=== PATIENT | female | born 1955 | race Caucasian/White ===

== ENCOUNTER → 2021-08-21 11:01 | Outpatient (CLI) | payer BC, SELFPAY ==
--- NOTE | ~2021-08-21 | DEXA_ITS ---
Bone Density Report Name: FARHANA RIVAS Age: 65 Sex: Female Ethnicity: White Date of : 1955 Indication: osteopenia; postmenopausal Referring Provider: VERONICA MUÑOZ Study: Bone densitometry was performed. Exam Date: August 21, 2021 Accession number: [id number] Bone Density: Region BMD T-score Z-score Classification AP Spine (L1-L4) 0.942 -1.0 0.8 Normal Femoral Neck (Left) 0.736 -1.0 0.5 Normal Total Hip (Left) 0.978 0.3 1.5 Normal Femoral Neck (Right) 0.755 -0.8 0.6 Normal Total Hip (Right) 0.906 -0.3 0.9 Normal Total Hip Mean 0.942 0.0 1.2 Normal World Health Organization criteria for BMD impression classify patients as: Normal (T-score at or above -1.0), Osteopenia (T-score between -1.0 and -2.5), or Osteoporosis (T-score at or below -2.5). 10-year Fracture Risk: FRAX not reported because: All T-scores for Spine Total, Hip Total, Femoral Neck at or above -1.0 Previous Exams: Region Exam Age BMD T-score BMD Change BMD Change Date g/cm2 vs Baseline vs Previous AP Spine(L1-L4) 08/21/2021 65 0.942 -1.0 -0.083* 0.015 01/26/2018 62 0.927 -1.1 -0.097* -0.097* 05/22/2014 58 1.025 -0.2 Total Hip(Left) 08/21/2021 65 0.978 0.3 0.033* 0.052* 01/26/2018 62 0.926 -0.1 -0.019 -0.019 05/22/2014 58 0.944 0.0 Total Hip(Right) 08/21/2021 65 0.906 -0.3 -0.041* -0.021 01/26/2018 62 0.926 -0.1 -0.021 -0.021 05/22/2014 58 0.947 0.0 *Denotes significance at 95% confidence level, LSC for AP Spine = 0.022 g/cm2, LSC for Total Hip = 0.027 g/cm2 Clinical Information Provided by Patient: Smokes Has used the following medications: Vitamin D Patient maximum height was 67 Menopause Age: 57 No regular weight bearing exercise Does not regularly consume dairy products Drinks caffeinated beverages Onset of menses at age 19 Number of children 1 Impression: The patient has normal bone mass. The patient has risk factors, including: smoking. No significant bone loss was observed. Discussion: BONE DENSITY IS ABOVE THE MINIMUM DESIRABLE LEVEL AT ALL SKELETAL SITES TESTED. This patient?s bone mineral density is above the minimum desirable level (T-score -1.0 or better) at all sites measured. The patient should follow a healthful lifestyle (good nutrition with adequate calcium and vitamin D, and appropriate weight-be
--- NOTE | ~2021-08-21 | MM_ITS ---
EXAMINATION: MM screening tammy BI w matt HISTORY: Screening mammogram TECHNIQUE: Craniocaudal and mediolateral oblique 3-D tomosynthesis images were obtained and synthetic 2-D images were generated. CAD analysis was submitted and interpreted. COMPARISON: August 10, 2018, January 26, 2018, July 02, 2013 bilateral screening mammogram examinat ions BREAST PARENCHYMAL COMPOSITION: The breasts are almost entirely fatty. FINDINGS: Stable benign grouped punctate microcalcifications in the skin at posterior lower inner rig ht breast, not changed since prior examination. There is no evidence of suspicious mass, calcificatio n, or architectural distortion to suggest malignancy in either breast. There has been no suspicious i nterval change. IMPRESSION: 1. No mammographic evidence of malignancy. 2. Recommend routine screening mammography in one year. BI-RADS Category 1: Negative Reviewed, dictated and finalized at location A. [facility]
== END ==
PROVIDERS: PCP Family Medicine; Visit Provider Obstetrics & Gynecology
DX: Z12.31 Encounter for screening mammogram for malignant neoplasm of breast (principal); Z78.0 Asymptomatic menopausal state
CPT/HCPCS: 77063; 77067; 77080

== ENCOUNTER 2022-07-18 10:40 | Outpatient (CLI) | payer MEDICARE, OTHER, SELFPAY ==
[2022-07-18 14:08] LABS: Kit Draw Collected
== END 2022-07-18 10:41 | disposition home or self-care (01) ==
LOC: ANHGOSHLAB 10:46
PROVIDERS: PCP Family Medicine; Visit Provider Nurse Practitioner
DX: E11.9 Type 2 diabetes mellitus without complications (principal)
CPT/HCPCS: 36415

== ENCOUNTER 2023-03-06 11:58 | Emergency (ER) | payer MEDICARE, SELFPAY ==
--- NOTE | ~2023-03-06 | XR_ITS ---
EXAMINATION: XR chest 2V DATE: 03/06/2023 13:24 INDICATION: Cough TECHNIQUE: Frontal and lateral views of the chest are obtained COMPARISON: None available FINDINGS: The lungs are free of acute opacities. No pleural effusion or pneumothorax. The cardiomedia stinal silhouette is normal. There is moderate thoracic spondylosis. IMPRESSION: 1. No acute cardiopulmonary abnormality. Reviewed, dictated and finalized at location A.
[2023-03-06 12:39] VITALS: BP 127/68; PULSE 65; RESP 16; TEMP 36.3; O2SAT 96
--- NOTE | 2023-03-06 13:11 | ED.URI ---
HPI - URI/Sore Throat General Chief Complaint: Upper Respiratory Infection Stated Complaint: COUGH Time Seen by Provider: 03/06/23 13:11 Source: patient Mode of arrival: ambulatory Limitations: no limitations History of Present Illness HPI Narrative: 67-year-old female presents for complaint of persistent cough for over 2 and half weeks. States cough is nonproductive. Endorses occasional wheezing and fatigue due to inability to sleep from the cough. Patient completed a course of steroids and azithromycin 1 week ago prescribed by her PCP. She endorses no improvement in symptoms. Denies shortness of breath, nausea, vomiting, lethargy, fevers or chills. Related Data Home Medications Medication Instructions Recorded Confirmed aspirin 81 mg tablet,delayed 81 mg PO DAILY 09/16/19 03/06/23 release (Adult Aspirin Regimen) betamethasone dipropionate 0.05 % 1 applic topical BID 11/10/20 03/06/23 topical cream Saccharomyces boulardii 250 mg 250 mg PO BID 09/08/21 03/06/23 capsule (Daily Probiotic (S. boulardii)) cholecalciferol (vitamin D3) 125 125 mcg PO DAILY 09/08/21 03/06/23 mcg (5,000 unit) capsule multivitamin (Daily Multi-Vitamin 1 tablet PO DAILY 09/08/21 03/06/23 tablet) Allergies Allergy/AdvReac Type Severity Reaction Status Date / Time No Known Allergies Allergy Unknown Verified 03/06/23 12:33 Review of Systems Review of Systems: CONSTITUTIONAL: Denies body aches, fever, chills, or sweats. EYES: Denies visual changes, redness, or discharge. ENT: Denies rhinorrhea, congestion, sore throat, or otalgia. CARDIOVASCULAR: Denies chest pain, palpitations, or edema. RESPIRATORY: Reports cough, denies sob GASTROINTESTINAL: Denies abdominal pain, nausea, vomiting, or diarrhea. GENITOURINARY: Denies dysuria or hematuria. SKIN: Denies rash, itching, or wounds. MUSCULOSKELETAL: Denies back pain, joint pain, or myalgia. NEUROLOGIC: Denies headache, numbness, tingling, or weakness. All systems reviewed & are unremarkable except as noted in HPI and below PMFSH Past Medical History Medical History Anxiety disorder, unspecified Depressive disorder, not elsewhere classified Diabetes mellitus Granuloma annulare History of TIA (transient ischemic attack) 2016 Panic disorder with agoraphobia and mild panic attacks Psoriasis Urge incontinence Vitamin B12 deficiency Surgical History Surgical History H/O bariatric surgery (~2002) gastric bypass H/O: (~1982) Family History Family History Mother Family history of transient ischemic attacks Cerebrovascular accident Family history of dementia Father Cerebrovascular accident Family history of heart disease in male family member before age 55 Other Family history of lung disease Family history of malignant neoplasm of breast in first degree relative Social History Social History Years smoked: 30 Smoking status: Current every day smoker Tobacco type: cigarettes Alcohol intake: never Substance use: never Substance use type: does not use Lack of Transportation: No Lack of Food: Never True Current Housing: I Have Housing Concerned About Future Housing: No Difficulty Paying Gas/Electric Bills: No Difficulty Paying for Meds: No Currently Unemployed: No Education: Master's Degree or Higher Living arrangements: alone Occupation/Education: retired 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
== END 2023-03-06 14:05 | disposition home or self-care (01) ==
PROVIDERS: Emergency Provider Nurse Practitioner Family; PCP Nurse Practitioner Family
DX: J40 Bronchitis, not specified as acute or chronic (principal); E11.9 Type 2 diabetes mellitus without complications; Z86.73 Personal history of transient ischemic attack (TIA), and cerebral infarction without residual deficits; L40.9 Psoriasis, unspecified; Z79.82 Long term (current) use of aspirin; F41.9 Anxiety disorder, unspecified; F32.A Depression, unspecified; F40.01 Agoraphobia with panic disorder
CPT/HCPCS: 71046; 99213; G0463

== ENCOUNTER 2023-07-28 14:42 | Emergency (ER) | payer MEDICARE, SELFPAY ==
[2023-07-28 14:53] VITALS: BP 126/75; PULSE 85; RESP 16; TEMP 37.2; O2SAT 100
--- NOTE | 2023-07-28 15:18 | ED.SKABFB ---
HPI - Skin/Abscess/Foreign Bdy General Chief complaint: Skin/Abscess/Foreign Body Stated complaint: abscess Time Seen by Provider: 07/28/23 15:06 Source: patient, RN notes reviewed and old records reviewed Mode of arrival: ambulatory Limitations: no limitations History of Present Illness HPI narrative: Patient presents today complaining of an abscess to her right labia. She was seen by her PCP on 07/11/2023 for same complaint and her abscess was lanced and drained at that time and she was started on a Bactrim. She was subsequently seen on 07/18/2023 for follow-up and her symptoms were improved. Since that time, her symptoms have significantly worsened even though she is still on Bactrim. Related Data Home Medications Medication Instructions Recorded Confirmed aspirin 81 mg tablet,delayed 81 mg PO DAILY 09/16/19 07/28/23 release (Adult Aspirin Regimen) betamethasone dipropionate 0.05 % 1 applic topical BID 11/10/20 07/28/23 topical cream Saccharomyces boulardii 250 mg 250 mg PO BID 09/08/21 07/28/23 capsule (Daily Probiotic (S. boulardii)) cholecalciferol (vitamin D3) 125 125 mcg PO DAILY 09/08/21 07/28/23 mcg (5,000 unit) capsule multivitamin (Daily Multi-Vitamin 1 tablet PO DAILY 09/08/21 07/28/23 tablet) Allergies Allergy/AdvReac Type Severity Reaction Status Date / Time No Known Allergies Allergy Unknown Verified 07/28/23 14:56 Review of Systems Review of Systems: CONSTITUTIONAL: Denies body aches, fever, chills, or sweats. EYES: Denies visual changes, redness, or discharge. ENT: Denies rhinorrhea, congestion, sore throat, or otalgia. CARDIOVASCULAR: Denies chest pain, palpitations, or edema. RESPIRATORY: Denies cough or dyspnea. GASTROINTESTINAL: Denies abdominal pain, nausea, vomiting, or diarrhea. GENITOURINARY: Denies dysuria or hematuria. SKIN: + right labial abscess MUSCULOSKELETAL: Denies back pain, joint pain, or myalgia. NEUROLOGIC: Denies headache, numbness, tingling, or weakness. PSYCH: Denies depression or anxiety. [facility] Past Medical History Medical History Anxiety disorder, unspecified Depressive disorder, not elsewhere classified Diabetes mellitus Granuloma annulare History of TIA (transient ischemic attack) 2016 Panic disorder with agoraphobia and mild panic attacks Psoriasis Urge incontinence Vitamin B12 deficiency Surgical History Surgical History H/O bariatric surgery (~2002) gastric bypass H/O: (~1982) Family History Family History Mother Family history of transient ischemic attacks Cerebrovascular accident Family history of dementia Father Cerebrovascular accident Family history of heart disease in male family member before age 55 Other Family history of lung disease Family history of malignant neoplasm of breast in first degree relative Social History Social History Years smoked: 30 Smoking status: Current every day smoker Tobacco type: cigarettes Smoking end date: 03/30/23 Alcohol intake: never Substance use: never Substance use type: does not use Lack of Transportation: No Lack of Food: Never True Current Housing: I Have Housing Concerned About Future Housing: No Difficulty Paying Gas/Electric Bills: No Difficulty Paying for Meds: No Currently Unemployed: No Education: Master's Degree or Higher Living arrangements: alone Occupation/Education: retired Additional occupation/education 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
[2023-07-28] MEDS: LIDOCAINE HCL 1% LOCAL INJ 2 ML AMPUL 8 ML INFILTRATE (15:23)
== END 2023-07-28 15:51 | disposition home or self-care (01) ==
PROVIDERS: Emergency Provider Nurse Practitioner; PCP Nurse Practitioner Family
DX: N76.4 Abscess of vulva (principal); Z87.891 Personal history of nicotine dependence; E11.9 Type 2 diabetes mellitus without complications; Z86.73 Personal history of transient ischemic attack (TIA), and cerebral infarction without residual deficits; Z79.82 Long term (current) use of aspirin; F41.9 Anxiety disorder, unspecified; F32.A Depression, unspecified
CPT/HCPCS: 56405; 87070; 87075; 87205; 99213; G0463

== ENCOUNTER 2023-10-05 14:13 | Outpatient (CLI) | payer MEDICARE, SELFPAY ==
--- NOTE | ~2023-10-05 | DEXA_ITS ---
Bone Density Report Name: FARHANA RIVAS Age: 67 Sex: Female Ethnicity: White Date of : 1955 Indication: postmenopausal; screening for osteoporosis; prior fracture; Referring Provider: HIMANSHU LOMBARDI Study: Bone densitometry was performed. Exam Date: October 05, 2023 Accession number: [id number] Bone Density: Region BMD T-score Z-score Classification AP Spine (L1-L4) 0.924 -1.1 0.8 Osteopenia Femoral Neck (Left) 0.666 -1.7 0.0 Osteopenia Total Hip (Left) 0.957 0.1 1.4 Normal Femoral Neck (Right) 0.670 -1.6 0.0 Osteopenia Total Hip (Right) 0.904 -0.3 1.0 Normal Total Hip Mean 0.931 -0.1 1.2 Normal World Health Organization criteria for BMD impression classify patients as: Normal (T-score at or above -1.0), Osteopenia (T-score between -1.0 and -2.5), or Osteoporosis (T-score at or below -2.5). 10-year Fracture Risk(1): Major Osteoporotic Fracture 14% Hip Fracture 1.5% Reported Risk Factors: [place] (), Neck BMD=0.670, BMI=42.9, previous fracture Input outside FRAX(R) limits. Adjusted to:Kkvubg=741 kg (1) FRAX(R) Version 3.08. Fracture probability calculated for an untreated patient. Fracture probability may be lower if the patient has received treatment. Previous Exams: Region Exam Age BMD T-score BMD Change BMD Change Date g/cm2 vs Baseline vs Previous AP Spine(L1-L4) 10/05/2023 67 0.924 -1.1 -0.101 -0.019 08/21/2021 65 0.942 -1.0 -0.083* 0.015 01/26/2018 62 0.927 -1.1 -0.097* -0.097* 05/22/2014 58 1.025 -0.2 Total Hip(Left) 10/05/2023 67 0.957 0.1 0.013 -0.021 08/21/2021 65 0.978 0.3 0.033* 0.052* 01/26/2018 62 0.926 -0.1 -0.019 -0.019 05/22/2014 58 0.944 0.0 Total Hip(Right) 10/05/2023 67 0.904 -0.3 -0.043* -0.002 08/21/2021 65 0.906 -0.3 -0.041* -0.021 01/26/2018 62 0.926 -0.1 -0.021 -0.021 05/22/2014 58 0.947 0.0 *Denotes significance at 95% confidence level, LSC for AP Spine = 0.022 g/cm2, LSC for Total Hip = 0.027 g/cm2 Clinical Information Provided by Patient: Has had a low trauma fracture Has used the following medications: Vitamin D Patient maximum height was 67.2 Menopause Age: 57 No regular weight bearing exercise Does not regularly consume dairy products Drinks caffeinated beverages Onset of menses at age 19 Number of children 1 Missed period f
== END 2023-10-05 14:14 ==
LOC: MICIMG 14:15
PROVIDERS: PCP Nurse Practitioner Family; Visit Provider Nurse Practitioner Family
DX: Z78.0 Asymptomatic menopausal state (principal); M85.88 Other specified disorders of bone density and structure, other site; M85.852 Other specified disorders of bone density and structure, left thigh; M85.851 Other specified disorders of bone density and structure, right thigh
CPT/HCPCS: 77080

== ENCOUNTER 2023-10-31 10:47 | Outpatient (CLI) | payer MEDICARE, SELFPAY ==
[2023-10-31 19:37] LABS: Alanine Aminotransferase 30 U/L (6-35); Albumin Level 4.1 g/dL (3.5-5.1); Alkaline Phosphatase 85 U/L (38-126); Anion Gap 8 mmol/L (4-12); Aspartate Amino Transferase 35 U/L (14-36); Bilirubin,Total 0.5 mg/dL (0.2-1.3); Blood Urea Nitrogen 14 mg/dL (7-17); Calcium 9.1 mg/dL (8.4-10.2); Carbon Dioxide 25 mmol/L (22-30); Chloride 106 mmol/L (98-107); Cholesterol 182 mg/dL (0-200); Estimated Glomerular Filt Rate > 60; Glucose 106 mg/dL (65-110); HDL Direct 40 mg/dL; Potassium 4.4 mmol/L (3.4-5.0); Sodium 139 mmol/L (137-145); Triglycerides 176 mg/dL (<150)
[2023-10-31 19:49] LABS: LDL Cholesterol Direct 118 mg/dL
[2023-11-03 15:08] LABS: Vitamin D 1,25 (OH)2 Total 67 pg/mL (18-72); Vitamin D2 1,25 (OH)2 <8 pg/mL; Vitamin D3 1,25 (OH)2 67 pg/mL
== END 2023-10-31 10:48 | disposition home or self-care (01) ==
LOC: ANHGOSHLAB 10:49
PROVIDERS: Visit Provider Nurse Practitioner Family
DX: E11.9 Type 2 diabetes mellitus without complications (principal); E78.1 Pure hyperglyceridemia; E55.9 Vitamin D deficiency, unspecified; E53.8 Deficiency of other specified B group vitamins
CPT/HCPCS: 36415; 80053; 80061; 82607; 82652; 83036

== ENCOUNTER 2023-10-31 15:42 | Outpatient (CLI) | payer MEDICARE, SELFPAY ==
--- NOTE | ~2023-10-31 | MM_ITS ---
EXAMINATION: MM screening tammy BI w matt HISTORY: Screening mammogram TECHNIQUE: Craniocaudal and mediolateral oblique 3-D tomosynthesis images were obtained and synthetic 2-D images were generated. CAD analysis was submitted and interpreted. COMPARISON: August 21, 2019 bilateral screening mammogram BREAST PARENCHYMAL COMPOSITION: The breasts are almost entirely fatty. FINDINGS: There is no evidence of suspicious mass, calcification, or architectural distortion to sugg est malignancy in either breast. There has been no suspicious interval change. IMPRESSION: 1. No mammographic evidence of malignancy. 2. Recommend routine screening mammography in one year. BI-RADS Category 1: Negative Reviewed, dictated and finalized at location A.
== END 2023-10-31 15:43 ==
LOC: MICIMG 15:43
PROVIDERS: PCP Nurse Practitioner; Visit Provider Nurse Practitioner
DX: Z12.31 Encounter for screening mammogram for malignant neoplasm of breast (principal)
CPT/HCPCS: 77063; 77067

== ENCOUNTER 2024-05-21 10:29 | Outpatient (CLI) | payer MEDICARE, SELFPAY ==
[2024-05-21 13:31] LABS: Alanine Aminotransferase 21 U/L (6-35); Alkaline Phosphatase 90 U/L (38-126); Anion Gap 5 mmol/L (4-12); Aspartate Amino Transferase 34 U/L (14-36); Bilirubin,Total 0.4 mg/dL (0.2-1.3); Blood Urea Nitrogen 17 mg/dL (7-17); Carbon Dioxide 27 mmol/L (22-30); Chloride 106 mmol/L (98-107); Cholesterol 175 mg/dL (0-200); Estimated Glomerular Filt Rate > 60; Glucose 93 mg/dL (65-110); HDL Direct 37 mg/dL; Potassium 4.3 mmol/L (3.4-5.0); Sodium 138 mmol/L (137-145); Triglycerides 205 mg/dL (<150)
[2024-05-21 13:40] LABS: Basophils Percent Auto 0.5 % (0.2-1.2); Eosinophils Absolute Auto 0.1 K/mm3 (0-0.3); Eosinophils Percent Auto 1.2 % (0-4.4); Hematocrit 45.6 % (37.0-47.0); Hemoglobin 14.4 g/dL (12.0-15.0); Immature Granulocyte Absolute 0.01 K/mm3 (0.00-0.031); Immature Granulocyte Percent A 0.1 % (0-0.5); Lymphocytes Absolute Auto 1.58 K/mm3 (0.9-3.2); Lymphocytes Percent Auto 21.2 % (18.3-44.2); Mean Corpuscular HGB Conc 31.6 g/dl (32-36); Mean Corpuscular Hemoglobin 28.3 pg (26-34); Mean Corpuscular Volume 89.8 fl (80-100); Mean Platelet Volume 9.4 fl (7.4-10.4); Monocytes Absolute Auto 0.4 K/mm3 (0.1-0.6); Monocytes Percent Auto 5.5 % (2.6-8.5); Neutrophils Absolute Auto 5.3 K/mm3 (1.3-6.7); Neutrophils Percent Auto 71.5 % (45.5-73.1); Platelet Count Result 328 k/mm3 (150-375); Red Blood Count 5.08 M/mm3 (4.2-5.4); Red Cell Distribution Width 14.2 % (11.5-14.5); White Blood Count 7.5 K/mm3 (4.5-10.0)
[2024-05-21 13:42] LABS: LDL Cholesterol Direct 101 mg/dL
[2024-05-21 14:34] LABS: Microalbumin Urine Random 8.9 mg/L (0-16.7)
[2024-05-21 17:56] LABS: Creatinine Urine 298.6 mg/dL
[2024-05-21 23:53] LABS: Hemoglobin A1C 5.9 % (<5.7)
== END 2024-05-21 10:30 | disposition home or self-care (01) ==
LOC: ANHGOSHLAB 10:31
PROVIDERS: PCP Nurse Practitioner Family; Visit Provider Nurse Practitioner Family
DX: E11.9 Type 2 diabetes mellitus without complications (principal); Z79.899 Other long term (current) drug therapy; E78.1 Pure hyperglyceridemia
CPT/HCPCS: 36415; 80053; 80061; 82043; 83036; 85025

== ENCOUNTER 2024-09-03 14:16 | Emergency (ER) | payer MEDICARE, SELFPAY ==
[2024-09-03 14:24] VITALS: BP 120/81; PULSE 75; RESP 16; TEMP 36.8; O2SAT 99
--- NOTE | 2024-09-03 14:24 | ED_ITS ---
HPI - URI/Sore Throat General Chief Complaint: Ear Stated Complaint: EARACHE Time Seen by Provider: 09/03/24 14:24 Source: patient, RN notes reviewed and old records reviewed Mode of arrival: ambulatory Limitations: no limitations History of Present Illness HPI Narrative: patient presents with complaints of right ear pain for 3-4 days. She denies any injury or trauma. She denies any fever, chills, sweats. She denies any nasal drainage. No other concerns or complaints today. Related Data Home Medications ?Medication ?Instructions ?Recorded ?Confirmed ?Last Taken ?Type betamethasone dipropionate 0.05 % 1 applic topical BID 11/10/20 04/16/24 Unknown History topical cream cholecalciferol (vitamin D3) 125 125 mcg PO DAILY 09/08/21 04/16/24 Unknown History mcg (5,000 unit) capsule multivitamin (Daily Multi-Vitamin 1 tablet PO DAILY 09/08/21 04/16/24 Unknown History tablet) Allergies Allergy/AdvReac Type Severity Reaction Status Date / Time No Known Allergies Allergy Unknown Verified 09/03/24 14:23 Review of Systems Review of Systems: All systems reviewed & are unremarkable except as noted in HPI and below Constitutional: Constitutional: Reports no additional constitutional complaints ENT: Reports system reviewed and no additional complaints, except as documented and Reports otalgia Cardiovascular: Cardiovascular: Reports no additional cardiovascular complaints Respiratory: Respiratory: Reports no additional respiratory complaints Gastrointestinal: Gastrointestinal: Reports no additional gastrointestinal complaints [facility] Past Medical History Medical History Osteopenia Diabetes mellitus (~05/2022) History of TIA (transient ischemic attack) 2016 Granuloma annulare Psoriasis Urge incontinence Anxiety disorder, unspecified Vitamin B12 deficiency Depressive disorder, not elsewhere classified Panic disorder with agoraphobia and mild panic attacks Surgical History Surgical History H/O: (~1982) H/O bariatric surgery (~2002) gastric bypass Family History Family History Mother Family history of transient ischemic attacks Cerebrovascular accident Family history of dementia Father Cerebrovascular accident Family history of heart disease in male family member before age 55 Sibling Pancreatic cancer, Onset Age: 64 Brother Other Family history of lung disease Family history of malignant neoplasm of breast in first degree relative Social History Social History Social History: Caffeine-coffee daily Years smoked: 30 Smoking status: Current every day smoker Tobacco type: cigarettes Smoking end date: 03/30/23 Alcohol intake: never Substance use: never Substance use type: does not use Lack of Transportation: No Lack of Food: Never True Current Housing: I Have Housing Concerned About Future Housing: No Difficulty Paying Gas/Electric Bills: No Difficulty Paying for Meds: No Currently Unemployed: No Education: Master's Degree or Higher Living arrangements: alone Occupation/Education: retired 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 There is no relevant family history pertinent to the patient complaint. Exam Const: General: cooperative, no acute distress, alert and awake Orientation/consciousness: oriented to person, oriented to place and oriented to time HENMT: Head: normal to inspection Ears: TM abnormal with fluid behind the TM on the right and with loss of landmarks Resp: Effort & Inspection: normal respiratory effort and able to speak in complete sentences Auscultation: clear to auscultation bilaterally, no crackles, no rales, no rhonchi and no wheezes Cardio: Palpation: normal PMI Rate: regular rate Rhythm: regular rhythm Heart sounds: S1 normal heart sound present and S2 normal heart sound present Neuro: General: oriented to person, oriented to place and oriented to time Cranial nerves: Yes CN's II-XII intact bilaterally Psych: Appearance: grossly normal Thought process: Normal thought process present Insight: Good insight present (Psych) Judgement: Good judgement present (Psych) Course Course Level of Care: Express Care Visit Vital Signs Vital signs: Reviewed MDM - URI/Sore Throat MDM Narrative Medical decision making narrative: right ear with fluid behind the drum, but no erythema. Start prednisone, patient counseled to check blood sugar carefully while taking. She is nontoxic appearing, stable for discharge home. Discharge instructions reviewed with patient, as well as provided in writing per nursing staff. The instructions also include specific and strict return/GO TO THE ER as well as f/u information. All questions have been answered, and the patient deny any further questions with discharge and discharge plan. Some parts of this dictation were generated by voice recognition software and may contain typographical and/or grammatical inaccuracies. Differential Diagnosis Differential diagnosis: Likely upper respiratory infection, otitis media and viral infection Medical Records Attestation: I reviewed the patient's medical records. Discharge Plan Discharge Clinical Impression: Otalgia, right ear Patient Disposition: Home, Self-Care Condition: Stable Instructions: Antibiotic Form, Earache (ED) Additional Instructions: Take medication as prescribed. Follow with primary care provider. Emergency department for new or worse symptoms Patient Language: Bhutanese Prescriptions: New prednisone 50 mg tablet 50 mg PO DAILY Qty: 5 0RF No Action cholecalciferol (vitamin D3) 125 mcg (5,000 unit) capsule 125 mcg PO DAILY multivitamin [Daily Multi-Vitamin] Tablet 1 tablet PO DAILY betamethasone dipropionate 0.05 % cream 1 applic topical BID bupropion HCl [Wellbutrin SR] 150 mg tablet sustained-release 12 hr 150 mg PO BID Qty: 180 1RF buspirone 7.5 mg tablet 7.5 mg PO DAILY Qty: 90 1RF metformin 500 mg tablet 500 mg PO DAILY Qty: 90 1RF solifenacin 10 mg tablet 10 mg PO DAILY Qty: 90 3RF lorazepam 0.5 mg tablet 0.5 mg PO DAILY PRN (Reason: anxiety) Qty: 30 0RF escitalopram oxalate 20 mg tablet 20 mg PO DAILY Qty: 90 1RF semaglutide 2 mg/dose (8 mg/3 mL) pen injector 2 mg subcut WEEKLY Qty: 3 2RF Follow-up/Referrals: Quintin Law MD [Primary Care Provider] - 2 Weeks Time of Disposition: 14:35
== END 2024-09-03 14:38 | disposition home or self-care (01) ==
PROVIDERS: Emergency Provider Nurse Practitioner Family; PCP Family Medicine
DX: H92.01 Otalgia, right ear (principal); Z87.891 Personal history of nicotine dependence; E11.9 Type 2 diabetes mellitus without complications; Z79.84 Long term (current) use of oral hypoglycemic drugs; M85.80 Other specified disorders of bone density and structure, unspecified site; F41.9 Anxiety disorder, unspecified; F32.A Depression, unspecified; Z98.84 Bariatric surgery status
CPT/HCPCS: 99213; G0463

== ENCOUNTER 2024-12-19 13:41 | Emergency (ER) | payer MEDICARE, SELFPAY ==
[2024-12-19 13:50] VITALS: BP 128/84; PULSE 70; RESP 14; TEMP 36.9; O2SAT 99
--- NOTE | 2024-12-19 14:18 | ED.BACK ---
HPI - Back Pain/Injury General Chief Complaint: Back Pain/Injury Stated Complaint: Lower back spasms Time Seen by Provider: 12/19/24 14:00 Source: patient and RN notes reviewed Mode of arrival: ambulatory Limitations: no limitations History of Present Illness HPI Narrative: 69-year-old female presents Express Care complaining of left lower back pain since yesterday. She denies any apparent injury. Patient reports having muscle spasms that are worse with movement. Patient denies any saddle anesthesia, loss of bowel or bladder function, weakness to her legs, urinary symptoms, fevers, body aches, or any other complaints. Patient denies any history of back problems. Patient said yesterday she went shopping and had dinner with her friends denies doing anything strenuous. Related Data Home Medications ?Medication ?Instructions ?Recorded ?Confirmed ?Last Taken ?Type cholecalciferol (vitamin D3) 125 125 mcg PO DAILY 09/08/21 10/15/24 Unknown History mcg (5,000 unit) capsule multivitamin (Daily Multi-Vitamin 1 tablet PO DAILY 09/08/21 10/15/24 Unknown History tablet) bupropion HCl 150 mg tablet,12 hr 150 mg PO DAILY 10/15/24 10/15/24 Unknown History sustained-release (Wellbutrin SR) loratadine 10 mg tablet (Claritin) 10 mg PO DAILY 10/15/24 10/15/24 Unknown History Allergies Allergy/AdvReac Type Severity Reaction Status Date / Time No Known Allergies Allergy Unknown Verified 10/15/24 09:23 Review of Systems Review of Systems: CONSTITUTIONAL: Denies fever, chills, or sweats. EYES: Denies visual changes, redness, or discharge. ENT: Denies rhinorrhea, congestion, sore throat, or otalgia. CARDIOVASCULAR: Denies chest pain, palpitations, or edema. RESPIRATORY: Denies cough or dyspnea. GASTROINTESTINAL: Denies abdominal pain, nausea, vomiting, or diarrhea. GENITOURINARY: Denies dysuria or hematuria. SKIN: Denies rash or itching. MUSCULOSKELETAL: Positive for back pain, negative for joint pain, flank pain, or myalgia. NEUROLOGIC: Denies headache, numbness, saddle anesthesia, loss of bowel or bladder function, or weakness. PSYCHIATRIC: Denies anxiety or depression. All other systems reviewed are negative, except as documented in HPI. ON LICENSE OF [facility] Past Medical History Medical History Osteopenia Diabetes mellitus (~05/2022) History of TIA (transient ischemic attack) 2016 Granuloma annulare Psoriasis Urge incontinence Anxiety disorder, unspecified Vitamin B12 deficiency Depressive disorder, not elsewhere classified Panic disorder with agoraphobia and mild panic attacks Surgical History Surgical History H/O: (~1982) H/O bariatric surgery (~2002) gastric bypass Family History Family History Mother Family history of transient ischemic attacks Cerebrovascular accident Family history of dementia Father Cerebrovascular accident Family history of heart disease in male family member before age 55 Sibling Pancreatic cancer, Onset Age: 64 Brother Other Family history of lung disease Family history of malignant neoplasm of breast in first degree relative Social History Social History Social History: Caffeine-coffee daily Years smoked: 30 Smoking status: Current every day smoker Tobacco type: cigarettes Smoking end date: 03/30/23 Alcohol intake: never Substance use: never Substance use type: does not use Do You Feel Safe in your Home?: Yes Lack of Transportation: No Lack of Food: Never True Current Housing: I Have Housing Concerned About Future Housing: No Difficulty Paying Gas/Electric Bills: No Difficulty Paying for Meds: No Currently Unemployed: No Education: Master's Degree or Higher Living arrangements: alone Occupation/Education: retired 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 There is no relevant family history pertinent to the patient complaint. Exam Narrative: GENERAL: This is a well-nourished, well-developed adult, in no apparent distress. They are non ill-appearing, nontoxic appearing. HEAD: normocephalic, atraumatic. EYES: Sclera clear/white. Conjunctiva normal. Vision is grossly intact. Extraocular movements intact EARS: External ears normal, Hearing grossly intact. NOSE: External nose normal THROAT: Mucous membranes moist NECK: Neck supple, CARDIOVASCULAR: Regular rate and rhythm RESPIRATORY: Respiratory rate normal, respiratory effort nonlabored, no respiratory distress SKIN: warm, Dry, intact with no suspicious lesions or rash, good texture and turgor. NEURO: awake, alert, and oriented to person, place and time. There were no obvious focal neurologic abnormalities. EXTREMITIES: No joint tenderness, effusion, or edema noted. BACK: No spinal point tenderness. No deformity. There is tenderness to palpation to the left lumbar region of the back. No CVA tenderness. Course Course Emergency Course: Portions of this record may have been created with voice recognition software Level of Care: Express Care Visit Vital Signs Vital signs: Vital Signs Temperature 98.5 F 12/19/24 13:50 Pulse Rate 70 12/19/24 13:50 Respiratory Rate 14 12/19/24 13:50 Blood Pressure 128/84 12/19/24 13:50 Pulse Oximetry 99 12/19/24 13:50 Oxygen Delivery Room Air 12/19/24 13:50 Temperature 98.5 F 12/19/24 13:50 Pulse Rate 70 12/19/24 13:50 Respiratory Rate 14 12/19/24 13:50 Blood Pressure 128/84 12/19/24 13:50 Pulse Oximetry 99 12/19/24 13:50 Oxygen Delivery Room Air 12/19/24 13:50 Reviewed MDM - Back Pain/Injury MDM Narrative Medical decision making narrative: Likely musculoskeletal strain of the lumbar back. Patient denies any apparent injury to her back. Will prescribe muscle relaxers and lidocaine patches along with dkoq-ydd-cxezdsv Tylenol ibuprofen for pain management. Discussed physical exam findings. Advised supportive measures and signs/symptoms to go to the ER. Pt is appropriate for outpt treatment and f/u. Differential Diagnosis Differential diagnosis: Likely lumbar radiculopathy, sciatica and strain of lumbar region Critical Care Time Critical Care Time Critical Care Time: No Discharge Plan Discharge Clinical Impression: Low back pain Qualifiers: Chronicity: acute Back pain laterality: left Sciatica presence: without sciatica Qualified Code(s): M54.50 - Low back pain, unspecified Patient Disposition: Home Condition: Stable Instructions: Low Back Strain (ED), Lower Back Exercises (ED) Additional Instructions: Take the muscle relaxer as directed. Do not drive or operate heavy machine, or work while taking the medication as it can make you drowsy. Use the lidocaine patches as directed. You may take Tylenol or ibuprofen as needed Please follow-up with your primary care provider if pain persist Rest. Avoid pushing, pulling, lifting --running or excessive walking-- or anything that worsens the symptoms You may try stretching your lower back or doing spinal decompression to help with symptoms as tolerated based off your activity level. Go to the emergency department if you develop any numbness or tingling to your groin, weakness in your legs, or any loss of bowel or bladder function. Patient Language: Russian Prescriptions: New methocarbamol 750 mg tablet 750 mg PO TID PRN (Reason: Muscle spasm) Qty: 16 0RF lidocaine 5 % adhesive patch,medicated 1 patch topical DAILY Qty: 15 0RF Rx Instructions: leave on most painful area for up to 12 hrs No Action cholecalciferol (vitamin D3) 125 mcg (5,000 unit) capsule 125 mcg PO DAILY multivitamin [Daily Multi-Vitamin] Tablet 1 tablet PO DAILY buspirone 7.5 mg tablet 7.5 mg PO DAILY Qty: 90 1RF metformin 500 mg tablet 500 mg PO DAILY Qty: 90 1RF solifenacin 10 mg tablet 10 mg PO DAILY Qty: 90 3RF bupropion HCl [Wellbutrin SR] 150 mg tablet sustained-release 12 hr 150 mg PO DAILY loratadine [Claritin] 10 mg tablet 10 mg PO DAILY escitalopram oxalate 20 mg tablet 20 mg PO DAILY Qty: 90 1RF lorazepam 0.5 mg tablet 0.5 mg PO DAILY PRN (Reason: anxiety) Qty: 30 0RF semaglutide 2 mg/dose (8 mg/3 mL) pen injector 2 mg subcut WEEKLY Qty: 3 3RF Follow-up/Referrals: UNKNOWN,DOCTOR [Primary Care Provider] - Time of Disposition: 14:14
== END 2024-12-19 14:26 | disposition home or self-care (01) ==
DX: M54.50 Low back pain, unspecified (principal); Z87.891 Personal history of nicotine dependence; E11.9 Type 2 diabetes mellitus without complications; Z79.84 Long term (current) use of oral hypoglycemic drugs; M85.80 Other specified disorders of bone density and structure, unspecified site; F41.9 Anxiety disorder, unspecified; F32.A Depression, unspecified; L40.9 Psoriasis, unspecified; Z86.73 Personal history of transient ischemic attack (TIA), and cerebral infarction without residual deficits; Z98.84 Bariatric surgery status
CPT/HCPCS: 99213; G0463

== ENCOUNTER 2025-04-11 08:17 | Outpatient (CLI) | payer MEDICARE, SELFPAY ==
--- OUTSIDE RECORDS SUMMARY | 2025-04-11 08:20 | XMS_ITS | Encounter Summary ---
Author Organization [facility] Address [address] [place] [address] Care Team Providers Care Home Health Aide Caregiver Name Role Phone Marcelino Spaulding MD Primary Care Provider [phone] Encounter Details Date Type Department Care Team (Late st Contact Info) Description 03/20/2019 Lab Requisition [facility] DermPath Lab [address] [place] [address] [place] [address] Social History Tobacco Use Types Packs/Day Years Used Date Smoking Tobacco: Former Smokeless Tobacco: Never Comments No Sex and Gender Information Value Date Recorded Sex Assigned at Not on file Legal Sex Female 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 Gender Identity Not on file Sexual Orientation Not on file documented as of this encounter Plan of Treatment Not on file documented as of this encounter Procedures Procedure Name Priority Date/Time Associated Diagnosis Comments DERMATOPATHOLOGY Routine 03/19/2019 12:0 0 AM CDT documented in this encounter Results * DERMATOPATHOLOGY (03/19/2019 12:00 AM CDT) Case Report Dermatopathology Report Case: [id number] Authorizing Provider: Will Sinha MD Collected: 03/19/2019 12:00 AM Ordering Location: [facility] DermPath Lab Received: 03/20/2019 01:49 PM Pathologist: Yudelka Navas MD Specimen: Skin, left forearm 9 4:57 PM CDT DERMATOPATHOLOGY LABORATORY Final Diagnosis Specimen A. SKIN, left forearm: GRANULOMA ANNULARE (L92.0) 4:57 PM CDT DERMATOPATHOLOGY LABORATORY at 1657 CDT Clinical History R/O GA vs BCC 4:57 PM CDT DERMATOPATHOLOGY LABORATORY Gross Description Specimen A: Received is one formalin filled container labeled with the patient's name and designated left forearm. The specimen consists of a punch biopsy measuring 5x5x6 mm, bisected. Jar 0. 4:57 PM CDT DERMATOPATHOLOGY LABORATORY Microscopic Description Specimen A. SKIN, left forearm: There are lymphocytes around blood vessels and histiocytes between collagen bundles some of which are arranged in a palisade. The collagen is focally altered. 4:57 PM CDT DERMATOPATHOLOGY LABORATORY Disclaimer An external and internal positive and negative controls are appropriate for the histochemical, immunohistochemical and immunofluorescence stain(s) in this case (if any), except where stated explicitly. The performance characteristics of the stain(s) cited in this report were developed and its performance characteristic determined by the Dermatopathology Laboratory at [facility], directed by Dr. Edwin Navas. These tests need not be, and therefore are not, approved by the [place] Food and Drug Administration. The tests are used for clinical purposes. Billing Codes Specimen Charges Stain Charges 18603 1 4:57 PM CDT DERMATOPATHOLOGY LABORATORY Embedded Images 4:57 PM CDT DERMATOPATHOLOGY LABORATORY Pathology/Cytolog y TISSUE SPECIMEN FROM SKIN / Unknown 03/19/2019 03/20/2019 1:49 PM CDT us Will Sinha MD LAB - PATHOLOGY/CYTOLOGY ORD ERABLES Final Result DERMATOPATHOLOGY LABORATORY [facility] - Department of Dermatology [address] [place] [address], 5th Floor Lab [address] [phone] documented in this encounter Visit Diagnoses Not on filedocumented in this encounter Care Teams Home Health Aide Caregiver Relationship Specialty Start Date End Date Marcelino Spaulding MD [address] [place] [address] PCP - General Family Medicine 10/11/17 documented as of this encounter
--- OUTSIDE RECORDS SUMMARY | 2025-04-11 08:20 | XMS_ITS | Clinical Summary ---
Author Organization [facility] Address [address] [facility] [address] Care Team Providers Care Metal Polisher And Buffer Apprentice Name Role Phone Marcelino Spaulding MD Primary Care Provider [phone] Source Comments [employer] [facility],non-owned Affiliates and Associated Physician Practices is amultiple site organization consisting of ambulatory clinics and hospital sitesin [place], [place], [place] and [place]. This disclosure is being madepursuant to the Care Everywhere program and may not contain all information available regarding this patient. Last updated 18.[employer] [facility] Allergies No known active allergies Medications * Be aware that medications may not be up to date on this document. Alwaysverify current medications with the patient. 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 Gender Identity Not on file Sexual Orientation Not on file Last Filed Vital Signs Vital Sign Reading Time Taken Comments Blood Pressure 118/70 10/11/2017 6:20 PM CDT Pulse 80 10/11/2017 6:20 PM CDT Temperature 36.7 C (98 F) 10/11/2017 6:20 PM CDT Respiratory Rate 16 10/11/2017 6:20 PM CDT Oxygen Saturation - - Inhaled Oxygen Concentration - - Weight 127 kg (280 lb) 10/11/2017 6:20 PM CDT Height 170.2 cm (5' 7) 10/11/2017 6:20 PM CDT Body Mass Index 43.85 10/11/2017 6:20 PM CDT Plan of Treatment Health Maintenance Due Date Last Done Comments BONE DENSITY TESTING 1955 COLOGUARD (AGES 45-75) - COL ON CA SCREENING 1956 COLON MONITORING 1956 COLONOSCOPY - COLON CA SCREENING 1956 CT COLONOGRAPHY - COLON CA SCREENING 1956 Colorectal Cancer Screening 1956 FIT - COLON CA SCREENING 1956 FLEX SIG - COLON CA SCREENING 1956 LIPID TESTING 1956 MAMMOGRAM 1955 MEDICARE AWV 12 MONTHS 1956 HEPATITIS C SCREENING 12/13/1974 DTAP/TDAP/TD VACCINES (1 - Tdap) 12/18/1975 PNEUMOCOCCAL VACCINE 50+ (1 of 1 - PCV) 2006 ZOSTER VACCINE (1 of 2) 2006 Respiratory Syncytial Virus (RSV) Vaccine Pt: or over 60 yrs (1 - Risk 60-74 years 1-dose series) 2016 SCREENING FOR DIABETES 10/11/2017 DEPRESSION SCREENING 07/03/2024 COVID-19 VACCINE (1 - 2023-2 5 season) 2025 INFLUENZA VACCINE (#1) 2025 HEPATITIS B VACCINE Aged Out No longe r eligible based on patient's age to complete this topic HIB VACCINE Aged Out No longer eligi ble based on patient's age to complete this topic HPV VACCINE Aged Out No longer eligi ble based on patient's age to complete this topic MENINGOCOCCAL (Group B) VACC INE SHARED DECISION-MAKING Aged Out No longer eligibl e based on patient's age to complete this topic MENINGOCOCCAL GROUPS A/C/Y/W VACCINE Aged Out No longer eligible b ased on patient's age to complete this topic Insurance MEDICARE Care Teams Metal Polisher And Buffer Apprentice Relationship Specialty Start Date End Date Marcelino Spaulding MD [address] [place] [address] PCP - General Family Medicine 10/11/17
--- OUTSIDE RECORDS SUMMARY | 2025-04-11 08:20 | XMS_ITS | Clinical Summary ---
Author Organization [facility] [employer] Address [address] [place] [address] Care Team Providers Care Senior Physical Therapist Name Role Phone Tiffanie Wiseman NP Primary Care Provider [phone] Allergies No known active allergies Medications LORazepam (ATIVAN) 0.5 mg tablet Take 0.5 mg by mouth daily as needed 10/18/2021 Active escitalopram (LEXAPRO) 20 mg tablet Take 20 mg by mouth daily 10/22/2021 Active busPIRone (BUSPAR) 7.5 mg tablet Take 7.5 mg by mouth Active aspirin (Aspirin Childrens) 81 mg chewable tablet Take 81 mg by mouth daily Active vit D3-vit D-wlyueamxr-nium [phone] bvdz-yhr-ch-mg tablet Take by mouth Active Lactobacillus acidophilus (Probiotic) 10 billion cell capsule Take by mouth Active multivit,Ca,iron -UF-akplpz-hcp [phone] wn-wta-mmf-mcg tablet Take by mouth Active folic acid (FOLVITE) 1 mg tablet Take 1 tablet (1 mg total) by mouth daily 30 tablet 11 04/25/2022 Active metFORMIN (GLUCOPHAGE) 500 mg tablet Take 500 mg by mouth daily 07/18/2022 Active Active Problems Problem Noted Date Diagnosed Date Morbid obesity 09/15/2010 Social History Tobacco Use Types Packs/Day Years Used Date Smoking Tobacco: Every Day Cigarettes Smokeless Tobacco: Never Comments Unknown Sex and Gender Information Value Date Recorded Sex Assigned at Not on file Legal Sex Female 9:21 AM NETWORK ENGINEERING ADVISOR Gender Identity Female 09/09/2021 10:08 PM NETWORK ENGINEERING ADVISOR Sexual Orientation Straight 09/09/2021 10 :08 PM NETWORK ENGINEERING ADVISOR Obstetrics History Plan of Treatment Health Maintenance Due Date Last Done Comments Breast Cancer Screening-Mammogram 1956 Colon Cancer Screening-Colonoscopy 1956 Depression Screening 1956 Fall Risk Assessment 1956 Osteoporosis Screening-Bone Density Scan 1956 DTaP/Tdap/Td Vaccine (1 - Tdap) 12/18/1967 Pneumococcal vaccine 65+ (1 of 2 - PCV) 12/18/1975 Zoster Vaccine (1 of 2) 2006 Well Visit 65+ 2021 Covid-19 Vaccine (5 - 2024-2 6 season) 2025 12/30/2021, 05/12/2021, 09/20/2020, Additional history exists Influenza Vaccine (#1) 2025 03/24/2019, 2015 Hepatitis B Screening Completed 04/25/2022 Hepatitis C Screening Completed 04/25/2022 Procedures Procedure Name Priority Date/Time Associated Diagnosis Comments HEPATITIS C ANTIBODY Routine 04/25/2022 11:27 AM CDT Plaque psoriasis from Last 3 Months or Most Recently Relevant to Health Maintenance Results * Hepatitis C antibody (04/25/2022 11:27 AM CDT) Hep C Ab Nonreactive Nonreactive [facility] Comment:Antibodies to HCV no t detected. Does NOT exclude the possibility of recent exposure to HCV. Blood 04/25/2022 11:2 7 AM CDT 04/25/2022 12:29 PM CDT Vika Davies MD LAB MICROBIOLOGY - GENERAL ORDE [place] Edited Result - Final [facility] [place] [facility] Department [place] [address] from Last 3 Months or Most Recently Relevant to Health Maintenance Insurance MEDICARE COMMERCIAL GENERIC MEDICARE COMMERCIAL GENERIC Care Teams Senior Physical Therapist Relationship Specialty Start Date End Date Tiffanie Wiseman NP PCP - General Nurse Practitioner 01/17/22
--- OUTSIDE RECORDS SUMMARY | 2025-04-11 08:20 | XMS_ITS | Encounter Summary ---
Author Organization [facility] Address [address] [place] [address] Care Team Providers Care Spectroscopist Name Role Phone Marcelino Spaulding MD Primary Care Provider [phone] Encounter Details Date Type Department Care Team (Late st Contact Info) Description 06/01/2020 Lab Requisition [facility] DermPath Lab [address] [place] [address] [place] [address] Social History Tobacco Use Types Packs/Day Years Used Date Smoking Tobacco: Former Smokeless Tobacco: Never Comments No Sex and Gender Information Value Date Recorded Sex Assigned at Not on file Legal Sex Female 5:20 PM INDEPENDENT TRADER Gender Identity Not on file Sexual Orientation Not on file documented as of this encounter Plan of Treatment Not on file documented as of this encounter Procedures Procedure Name Priority Date/Time Associated Diagnosis Comments DERMATOPATHOLOGY Routine 05/27/2020 12:0 0 AM INDEPENDENT TRADER documented in this encounter Results * DERMATOPATHOLOGY (05/27/2020 12:00 AM INDEPENDENT TRADER) Case Report Dermatopathology Report Case: [id number] Authorizing Provider: Will Sinha MD Collected: 05/27/2020 12:00 AM Ordering Location: [facility] DermPath Lab Received: 06/01/2020 10:50 AM Pathologist: Yudelka Navas MD Specimens: A) - Skin, right lat lower leg B) - Skin, left lat lower leg 0 5:19 PM [facility] DERMATOPATHOLOGY LABORATORY Final Diagnosis Specimen A. SKIN, right lat lower leg: PSORIASIFORM DERMATITIS (L44.8) (see microscopic description and comment) Specimen B. SKIN, left lat lower leg: CHRONIC SPONGIOTIC DERMATITIS (L30.8) (see microscopic description and comment) 0 5:19 PM [facility] DERMATOPATHOLOGY LABORATORY at [address] [facility] Clinical History A-B: R/O PSO, eczema, SCCIS. 0 5:19 PM [facility] DERMATOPATHOLOGY LABORATORY Gross Description Specimen A: Received is one formalin filled container labeled with the patient's name and designated right lat lower leg. The specimen consists of a shave biopsy measuring [id number]. Jar 0. Specimen B: Received is one formalin filled container labeled with the patient's name and designated left lat lower leg. The specimen consists of a shave biopsy measuring 42o5f9rw. Jar 0. 0 5:19 PM [facility] DERMATOPATHOLOGY LABORATORY Microscopic Description Specimen A. SKIN, right lat lower leg: There is psoriasiform hyperplasia of the epidermis with focal parakeratosis and spongiosis. The dermis shows a sparse, perivascular lymphocytic infiltrate surrounding dilated, thick-walled vessels, which are increased in number. Grocott's methenamine silver (GMS) stain fails to highlight fungal elements in the available sections. COMMENT: The histological differential diagnosis includes early / partially treated psoriasis and a chronic eczematous dermatitis including stasis dermatitis. Specimen B. SKIN, left lat lower leg: There is focal parakeratosis and mild spongiosis of the epidermis. The dermis shows a sparse, perivascular lymphocytic infiltrate surrounding dilated, thick-walled vessels, which are increased in number. Grocott's methenamine silver (GMS) stain fails to highlight fungal elements in the available sections. COMMENT: These histological findings can be seen in an eczematous dermatitis and stasis dermatitis. 0 5:19 PM [facility] DERMATOPATHOLOGY LABORATORY Disclaimer An external and internal positive and negative controls are appropriate for the histochemical, immunohistochemical and immunofluorescence stain(s) in this case (if any), except where stated explicitly. The performance characteristics of the stain(s) cited in this report were developed and its performance characteristic determined by the Dermatopathology Laboratory at [facility], directed by Dr. Edwin Navas. These tests need not be, and therefore are not, approved by the [place] Food and Drug Administration. The tests are used for clinical purposes. Billing Codes Specimen Charges Stain Charges 95170 24200 1 1 94961 10758 1 1 0 5:19 PM INDEPENDENT TRADER DERMATOPATHOLOGY LABORATORY Embedded Images 0 5:19 PM INDEPENDENT TRADER DERMATOPATHOLOGY LABORATORY Pathology/Cytology TISSUE SPECIMEN FROM SKIN / Unknown 05/27/2020 06/01/2020 10:50 AM INDEPENDENT TRADER Miscellaneous samples (specimen) TISSUE SPECIMEN FROM SKIN / Unknown 05/27/2020 06/01/2020 10:50 AM INDEPENDENT TRADER Will Sinha MD LAB - PATHOLOGY/CYTOLOGY ORD ERABLES Final Result DERMATOPATHOLOGY LABORATORY [facility] - Department of Dermatology [facility] Specialized Medicine [address] [place] [address], [address] [phone] documented in this encounter Visit Diagnoses Not on filedocumented in this encounter Care Teams Spectroscopist Relationship Specialty Start Date End Date Marcelino Spaulding MD [address] [place] [address] PCP - General Family Medicine 10/11/17 documented as of this encounter
--- OUTSIDE RECORDS SUMMARY | 2025-04-11 08:20 | XMS_ITS | Encounter Summary ---
Author Organization [facility] Address [facility] [place] [address] Care Team Providers Care Digital Cartographer Name Role Phone Marcelino Spaulding MD Primary Care Provider [phone] Encounter Details Date Type Department Care Team (Late st Contact Info) Description 01/01/2024 Lab Requisition [facility] Physician [facility] - DermPath Lab [address] [place] [id number] [place] [address] Social History Tobacco Use Types Packs/Day Years Used Date Smoking Tobacco: Former Smokeless Tobacco: Never Comments No Sex and Gender Information Value Date Recorded Sex Assigned at Not on file Legal Sex Female 5:20 PM [employer] Gender Identity Not on file Sexual Orientation Not on file documented as of this encounter Plan of Treatment Not on file documented as of this encounter Procedures Procedure Name Priority Date/Time Associated Diagnosis Comments DERMATOPATHOLOGY Routine 12/27/2023 12:0 0 AM CDT documented in this encounter Results * DERMATOPATHOLOGY (12/27/2023 12:00 AM CDT) Case Report Dermatopathology Report Case: [id number] Authorizing Provider: Will Sinha MD Collected: 12/27/2023 12:00 AM Ordering Location: [facility] Physician [facility] - Received: 01/01/2024 11:03 AM DermPath Lab Pathologist: Alivia Lebron MD Specimen: Skin, right cheek 3:43 PM [facility] DERMATOPATHOLOGY LABORATORY Final Diagnosis Specimen A. 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 The specimen consists of a shave biopsy measuring 7x7x2 mm. Jar 0. 3:43 PM [facility] DERMATOPATHOLOGY LABORATORY Microscopic Description Specimen A. SKIN, right cheek: There is psoriasiform hyperplasia of the epidermis with focal parakeratosis and spongiosis. There is also intraepidermal basilar atypia, that focally extends to the base of the specimen. There is a superficial, mainly lymphohistiocytic inflammatory infiltrate. The dermis shows a proliferation of elastic fibers in the superficial dermis that are increased in thickness. IL-36 immunostain is positive in the superficial aspect of the epidermis. Grocott's methenamine silver (GMS) stain is negative for fungal elements in the sections examined. COMMENT: If these histologic features represent a more localized process, the histologic differential diagnosis includes a psoriasiform keratosis with reactive epidermal atypia, and a hypertrophic actinic keratosis. If these findings represent a more diffuse process, the histologic features are consistent with psoriasis. Clinical correlation is recommended. 3:43 PM [facility] DERMATOPATHOLOGY LABORATORY Disclaimer An external and internal positive and negative controls are appropriate for the histochemical, immunohistochemical and immunofluorescence stain(s) in this case (if any), except where stated explicitly. The performance characteristics of the stain(s) cited in this report were developed and its performance characteristic determined by the Dermatopathology Laboratory at [facility], directed by Dr. Edwin Navas. These tests need not be, and therefore are not, approved by the [place] Food and Drug Administration. The tests are used for clinical purposes. Billing Codes Specimen Charges Stain Charges 91086 1 [id number] 1 1 07/05/202 4 3:43 PM CDT DERMATOPATHOLOGY LABORATORY Embedded Images 4 3:43 PM CDT DERMATOPATHOLOGY LABORATORY Pathology/Cytolog y TISSUE SPECIMEN FROM SKIN / Unknown 12/27/2023 01/01/2024 11:03 AM CDT Will Sinha MD LAB - PATHOLOGY/CYTOLOGY ORD ERABLES Final Result DERMATOPATHOLOGY LABORATORY [facility] - Department of Dermatology [facility] [address] [place] [address], [address] [phone] documented in this encounter Visit Diagnoses Not on filedocumented in this encounter Care Teams Digital Cartographer Relationship Specialty Start Date End Date Marcelino Spaulding MD [address] [place] [address] PCP - General Family Medicine 10/11/17 documented as of this encounter
[2025-04-11 19:21] LABS: Alanine Aminotransferase 17 U/L (6-35); Albumin Level 3.8 g/dL (3.5-5.1); Alkaline Phosphatase 77 U/L (38-126); Anion Gap 5 mmol/L (4-12); Aspartate Amino Transferase 22 U/L (14-36); Bilirubin,Total 0.2 mg/dL (0.2-1.3); Blood Urea Nitrogen 15 mg/dL (7-17); Calcium 8.9 mg/dL (8.4-10.2); Carbon Dioxide 30 mmol/L (22-30); Chloride 103 mmol/L (98-107); Cholesterol 185 mg/dL (0-200); Estimated Glomerular Filt Rate > 60; Glucose 84 mg/dL (65-110); HDL Direct 38 mg/dL; Potassium 4.4 mmol/L (3.4-5.0); Sodium 138 mmol/L (137-145); Total Protein 6.5 g/dL (6.3-8.2); Triglycerides 148 mg/dL (<150)
[2025-04-11 19:40] LABS: Hematocrit 41.4 % (37.0-47.0); Hemoglobin 12.9 g/dL (12.0-15.0); Immature Granulocyte Percent A 0.2 % (0-0.5); Lymphocytes Absolute Auto 1.50 K/mm3 (0.9-3.2); Mean Corpuscular HGB Conc 31.2 g/dl (32-36); Mean Corpuscular Hemoglobin 28.2 pg (26-34); Mean Corpuscular Volume 90.6 fl (80-100); Nucleated Red Blood Cells Absolute Auto 0.000 K/mm3 (0.0-0.012); Nucleated Red Blood Cells Perc 0.0 % (0.0-0.2); Platelet Count Result 319 k/mm3 (150-375); Red Blood Count 4.57 M/mm3 (4.2-5.4); White Blood Count 6.6 K/mm3 (4.5-10.0)
[2025-04-11 19:44] LABS: Thyroid Stimulating Hormone Reflex 0.855 uIU/mL (0.465-4.68)
[2025-04-11 20:05] LABS: Hemoglobin A1C 5.4 % (<5.7); MALB Creatinine Ratio < 6.7 mg/g (0-30)
[2025-04-11 20:15] LABS: Vitamin B12 242.0 pg/mL (239-931)
== END 2025-04-11 08:18 | disposition home or self-care (01) ==
LOC: ANHGOSHLAB 08:18
PROVIDERS: PCP Family Medicine; Visit Provider Nurse Practitioner Family
DX: E53.8 Deficiency of other specified B group vitamins (principal); E11.9 Type 2 diabetes mellitus without complications; Z13.29 Encounter for screening for other suspected endocrine disorder; F41.9 Anxiety disorder, unspecified; Z13.220 Encounter for screening for lipoid disorders; E55.9 Vitamin D deficiency, unspecified
CPT/HCPCS: 36415; 80053; 80061; 82043; 82306; 82607; 83036; 84443; 85025